=== PATIENT | female | born 1985 | race Caucasian/White ===

== ENCOUNTER 2016-12-22 11:54 | Inpatient (IN) | payer MEDICARE ==
--- NOTE | ~2016-12-22 | HP ---
History And Physical [address] [place]. [address] NAME: HOSEA STEPHENS : 81 STATUS : ADM IN [facility]#: [id number] AGE: 31 ADM/REG DATE : 12/22/16 MR#: [id number] REPORT SERV DATE: 12/22/16 DICTATED BY: VASU GUZMÁN DATE: 12/22/16 REPORT STATUS : Draft TRANSCRIBED BY: MODL DATE: 12/22/16 DATE OF ADMISSION: 12/22/2016 CHIEF COMPLAINT: Abdominal pain. HISTORY OF PRESENT ILLNESS: This is a 31-year-old lady with a history of acute intermittent porphyria as well as chronic pain, generalized anxiety disorder, endometriosis, GERD, presenting with abdominal pain. The patient is actually well known to our Hospitalist Service for her not so frequent but numerous admissions in the past for acute porphyria attacks. The patient presents yet again with a very similar episode. The patient started having a vague abdominal pain since about eight days ago. The patient reports that she has been under a lot of emotional stress from home. The patient did try sugar loading at home without any improvement of her abdominal pain. The patient thus came to the ER for further evaluation and care. In the ER, the patient was found to be afebrile. The patient's blood pressure was fine, but she was very tachycardic with heart rate in the 130s. The patient was otherwise hemodynamically stable. Initial lab evaluation was all very benign including benign LFTs. Urinalysis was also benign. Internal Medicine consultation was requested for admission of the patient for further evaluation and care. REVIEW OF SYSTEMS: The patient denies any fevers or chills. Also, a 14-point review of systems reviewed and negative other than mentioned above. MEDICATIONS: 1. Oxycodone 15 mg p.o. four times daily p.r.n. 2. Xanax 1 mg p.o. three times daily p.r.n. ALLERGIES: 1. ATIVAN. 2. MORPHINE. 3. PROPOFOL. PAST MEDICAL HISTORY: 1. 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 The patient was most recently hospitalized back in August which is about four months ago. The patient follows with [facility] as an outpatient and she does not have any physicians here locally that she follows with. 2. Chronic pain, narcotic dependence, on 15 mg of oxycodone four times daily p.r.n. as an outpatient. 3. Generalized anxiety disorder, on Xanax as an outpatient. 4. Endometriosis. 5. GERD. PAST SURGICAL HISTORY: History And Physical [address] [address] NAME: HOSEA STEPHENS : [birth year] STATUS : ADM IN PAT#: [id number] AGE: 31 ADM/REG DATE : 12/22/16 MR#: [id number] REPORT SERV DATE: 12/22/16 DICTATED BY: VASU GUZMÁN DATE: 12/22/16 REPORT STATUS : Draft TRANSCRIBED BY: ROSY DATE: 12/22/16 1. PEG tube in the past. 2. Left knee surgery. 3. Port-A-Cath placement. 4. Left ovarian cyst surgery. FAMILY HISTORY: 1. Hypertension. 2. COPD. SOCIAL HISTORY: The patient smokes about half a pack per day. The patient rarely consumes alcohol if ever. The patient does not use any illicit drugs. The patient is at home with her . PHYSICAL EXAMINATION: VITAL SIGNS: Temperature 98.2, blood pressure 164/87, pulse 138, respiratory rate is 16, and saturating 98% on room air. NEUROLOGIC: The patient is alert and oriented x3 with no focal neurologic deficits. GENERAL: The patient is awake, does not appear to be in acute distress, and she is cooperative. NECK: No JVD. No lymphadenopathy. Normal thyroid. CHEST: No midline sternotomy scar and no tenderness to palpation. LUNGS: Clear to auscultation bilaterally with normal respiratory effort on room air. CARDIOVASCULAR: Regular rate and rhythm with no murmurs, rubs, or gallops, and PMI is nondisplaced. ABDOMEN: Soft, nontender, with active bowel sounds and no organomegaly. EXTREMITIES: No edema. Normal distal pulses. No calf tenderness. SKIN: Clean, dry, warm, and intact. LABORATORY DATA: Sodium is 141, potassium 4.3, chloride 108, BUN 21, creatinine 0.75, glucose 123, calcium 8.4. White blood cell count is 7.3, hemoglobin 12.3, and platelets 182. LFTs are within normal limits. Urinalysis was benign. ASSESSMENT AND PLAN: This is a 31-year-old lady with a history of acute intermittent porphyria, presenting with another episode. 1. Acute intermittent porphyria. The patient has established disease. 2. Chronic pain at baseline, with narcotic dependence. 3. Generalized anxiety disorder. 4. Endometriosis. 5. Gastroesophageal reflux disease. 6. Smoking. PLAN: The plan is to admit the patient under [facility]. The patient will be given D5 IV fluids. The patient will also be treated with Panhematin 4 mg/kg once daily. Also other means of supportive care will be provided including IV analgesia and anxiety control. I will check urine for urinary porphobilinogen just to confirm the diagnosis. Otherwise, for the rest of stable past medical conditions, including generalized anxiety disorder, chronic pain, et al., I will continue home medications. For smoking cessation, counseling was History And Physical [address] [address] NAME: HOSEA STEPHENS : 83 STATUS : ADM IN [facility]#: [id number] AGE: 31 ADM/REG DATE : 12/22/16 MR#: [id number] REPORT SERV DATE: 12/22/16 DICTATED BY: VASU GUZMÁN DATE: 12/22/16 REPORT STATUS : Draft TRANSCRIBED BY: MODL DATE: 12/22/16 provided. Standard DVT prophylaxis. The patient is full code at this time. [facility]/ROSY Vasu Guzmán MD / [id number] CC: Vasu Guzmán MD UNKNOWN
--- NOTE | ~2016-12-22 | DS ---
Discharge Summary [facility] [address] [place]. [address] NAME: HOSEA STEPHENS : [birth year] STATUS : DIS IN PAT#: [id number] AGE: 31 ADM/REG DATE : 12/22/16 MR#: [id number] REPORT SERV DATE: 12/27/16 DICTATED BY: VASU GUZMÁN DATE: 12/26/16 REPORT STATUS : Draft TRANSCRIBED BY: MODL DATE: 12/26/16 ADMISSION DATE: 12/22/2016 DISCHARGE DATE: 12/26/2016 DISCHARGE DIAGNOSES: 1. Acute intermittent porphyria. 2. Chronic pain. 3. Generalized anxiety disorder. 4. Smoking. 5. Gastroesophageal reflux disease. CONSULTS: None. PROCEDURES: None. HOSPITAL COURSE: This is a 31-year-old lady, who is well-known to our Hospitalist Service for her numerous hospitalizations for the acute intermittent porphyria, who was admitted yet again with acute intermittent porphyria. For details, please refer to my own H and P. In summary, the patient was admitted and was started on Panhematin as well as IV glucose loading. The patient was also given supportive care with pain control. The patient received three doses of Panhematin 4 mg/kg IV daily. There was a question of possible from the past and I did go ahead and check urinary porphobilinogen, which was positive indeed suggesting that the patient does have a true acute intermittent porphyria. After a few days of supportive care along with Panhematin, the patient has clinically improved. During this hospital stay, the patient had an episode of fever that was not attributable to any identifiable source of infection. The patient was simply monitored, and the patient did not have any further recurrent fevers. The patient's lab work was also very benign. The patient is now being discharged home to be followed as an outpatient. Of note, despite the patient having been diagnosed with acute intermittent porphyria, the patient does not yet have an established primary care in the area. The patient was strongly encouraged to find a local primary care physician in addition to following up with [facility] that she apparently is already doing. Also, patient was complaining of uncontrolled anxiety here in the hospital, and the patient was given a referral to Psychiatry so she can follow up as an outpatient. DISPOSITION: Home. DISCHARGE MEDICATIONS: No changes. FOLLOWUP: 1. Follow up with [facility] as already scheduled. 2. Please establish care with a primary care physician and psychiatrist as soon as possible. A total of 25 minutes was spent in coordinating this patient's discharge today. Discharge Summary [address] [address] NAME: HOSEA STEPHENS : [birth year] STATUS : DIS IN PAT#: [id number] AGE: 31 ADM/REG DATE : 12/22/16 MR#: [id number] REPORT SERV DATE: 12/27/16 DICTATED BY: VASU GUZMÁN DATE: 12/26/16 REPORT STATUS : Draft TRANSCRIBED BY: ROSY DATE: 12/26/16 Samina/ROSY Vasu Guzmán MD / [id number] CC: Vasu Guzmán MD
[~2016-12-22 11:54] MED LIST: ALEVE220 MG PO; BACDS PO; CHANTIX0.5 PO; DSS PO; ENDOCET1 TA3 PO; EXCEDRIN EXTRA1 EACH PO; LEVAQUIN750 MG PO; MIRALAXPKT PO; NATURA2 OPH; NEUR300 PO; OXYCOD PO; OXYCON10 PO; PCET PO; ROXICODONE15 MG PO; TEARS NATURA OPH; X5 PO; XANAX1 MG PO; ZOFRAN8 PO; ZOL50 PO; [UNRECOGNIZED DRUG - OTHER] IV
[2016-12-22 12:36] LABS: ASCORBIC ACID (UR NOT ORDER) NEG (NEG); BILIRUBIN, URINE SMALL (NEG); ER URINALYSIS TAT 0 Hrs 09 Mins; KETONE, URINE NEGATIVE (NEG); LEUKOCYTE ESTERASE(NOT OR TRACE (NEG); NITRITE (URINE) NEG (NEG); WBC (NOT ORDERED) (RFLEX) 2 (0-5)
[2016-12-22 13:09] LABS: BASOPHILS 0.4 %; BASOPHILS ABSOLUTE 0.03 10/3/uL (0.0-0.16); EOSINOPHILS 0.4 %; EOSINOPHILS ABSOLUTE 0.03 10/3/uL (0.0-0.53); ER CBC TAT 0 Hrs 05 Mins; HEMOGLOBIN 12.3 g/dL (12.0-16.0); IMMATURE GRANULOCYTES 0.1 %; IMMATURE GRANULOCYTES ABSOLUTE 0.01 10/3/uL (0.0-0.11); LYMPHOCYTES 16.6 %; LYMPHOCYTES ABSOLUTE 1.21 10/3/uL (0.67-4.30); MEAN CORPUS HGB CONC 34.7 g/dL (32.0-36.0); MEAN CORPUSCULAR HEMOGLOB 31.7 pg (26.0-34.0); MEAN CORPUSCULAR VOLUME 91.2 fL (80-100); MEAN PLATELET VOLUME 10.7 fL (9.2-13.0); MONOCYTES 4.2 %; MONOCYTES ABSOLUTE 0.31 10/3/uL (0.21-1.20); NEUTROPHILS 78.3 %; NEUTROPHILS ABSOLUTE 5.72 10/3/uL (2.02-8.40); RBC DISTRIBUTION WIDTH 13.3 % (12.0-16.0); RED CELL COUNT 3.88 10/6/uL (4.0-5.6); WHITE BLOOD CELLS 7.3 10/3/uL (4.5-10.5)
[2016-12-22 13:10] LABS: HEMATOCRIT 35.4 % (36.0-48.0); PLATELET COUNT 182 10/3/uL (150-400)
[2016-12-22 13:11] LABS: MANUAL DIFF NO %
[2016-12-22 13:28] LABS: ALBUMIN 2.8 G/DL (3.5-5.0); ALKALINE PHOSPHATASE 63 U/L (45-117); BUN (BLOOD UREA NITROGEN) 21 MG/DL (6-23); CALCIUM, SERUM 8.4 MG/DL (8.5-10.4); CHLORIDE, SERUM 108 MMOL/L (96-112); CO2 (CARBON DIOXIDE) 26 MMOL/L (24-34); CREATININE 0.75 MG/DL (0.55-1.02); GFR AFRICAN AMERICAN 121 ML/MIN (>=60); GFR NON AFRICAN AMERICAN 105 ML/MIN (>=60); GLOBULIN 2.9 G/DL (2.5-4.1); GLUCOSE, SERUM 123 MG/DL (60-99); HCG SERUM QUANTITATIVE <1.0 IU/L (0-6); POTASSIUM, SERUM 4.3 MMOL/L (3.5-5.3); SGOT(AST) 28 U/L (5-40); SGPT(ALT) 34 U/L (5-65); SODIUM, SERUM 141 MMOL/L (135-148); TOTAL BILIRUBIN 1.2 MG/DL (0-1.2); TOTAL PROTEIN 5.7 G/DL (6.0-8.5)
[2016-12-25 13:06] LABS: BASOPHILS 0.4 %; BASOPHILS ABSOLUTE 0.02 10/3/uL (0.0-0.16); EOSINOPHILS 1.2 %; EOSINOPHILS ABSOLUTE 0.06 10/3/uL (0.0-0.53); HEMATOCRIT 34.1 % (36.0-48.0); HEMOGLOBIN 11.9 g/dL (12.0-16.0); IMMATURE GRANULOCYTES 0.4 %; IMMATURE GRANULOCYTES ABSOLUTE 0.02 10/3/uL (0.0-0.11); LYMPHOCYTES 16.8 %; LYMPHOCYTES ABSOLUTE 0.84 10/3/uL (0.67-4.30); MEAN CORPUS HGB CONC 34.9 g/dL (32.0-36.0); MEAN CORPUSCULAR HEMOGLOB 31.6 pg (26.0-34.0); MEAN CORPUSCULAR VOLUME 90.7 fL (80-100); MONOCYTES 11.6 %; MONOCYTES ABSOLUTE 0.58 10/3/uL (0.21-1.20); NEUTROPHILS 69.6 %; NEUTROPHILS ABSOLUTE 3.49 10/3/uL (2.02-8.40); PLATELET COUNT 139 10/3/uL (150-400); RBC DISTRIBUTION WIDTH 13.3 % (12.0-16.0); RED CELL COUNT 3.76 10/6/uL (4.0-5.6)
[2016-12-25 13:07] LABS: MANUAL DIFF NO %
[2016-12-25 13:22] LABS: CHLORIDE, SERUM 110 MMOL/L (96-112); CO2 (CARBON DIOXIDE) 25 MMOL/L (24-34); CREATININE 0.53 MG/DL (0.55-1.02); GFR AFRICAN AMERICAN 145 ML/MIN (>=60); GFR NON AFRICAN AMERICAN 125 ML/MIN (>=60); SODIUM, SERUM 144 MMOL/L (135-148)
[2016-12-25 13:24] LABS: BUN (BLOOD UREA NITROGEN) 6 MG/DL (6-23); CALCIUM, SERUM 6.1 MG/DL (8.5-10.4); GLUCOSE, SERUM 95 MG/DL (60-99); POTASSIUM, SERUM 3.3 MMOL/L (3.5-5.3)
[2016-12-26 07:31] LABS: BUN (BLOOD UREA NITROGEN) 8 MG/DL (6-23); CHLORIDE, SERUM 102 MMOL/L (96-112); CO2 (CARBON DIOXIDE) 25 MMOL/L (24-34); CREATININE 0.76 MG/DL (0.55-1.02); GFR AFRICAN AMERICAN 119 ML/MIN (>=60); GFR NON AFRICAN AMERICAN 103 ML/MIN (>=60); GLUCOSE, SERUM 86 MG/DL (60-99); SODIUM, SERUM 139 MMOL/L (135-148)
[2016-12-26 07:33] LABS: CALCIUM, SERUM 7.9 MG/DL (8.5-10.4)
[2016-12-31 18:39] LABS: PORPHOBILINOGEN - MG/L 24.9 mg/L (())
[2017-04-27] MEDS ORDERED: MIRALAX POWDER1 PKT PO (11:51)
== END 2016-12-26 14:10 | disposition home or self-care (01) | DRG 642 ==
LOC: ER 11:54 → 5SO 14:42
PROVIDERS: Emergency Medicine; Internal Medicine
DX: E80.21 Acute intermittent (hepatic) porphyria (principal); F11.20 Opioid dependence, uncomplicated; F41.9 Anxiety disorder, unspecified; K21.9 Gastro-esophageal reflux disease without esophagitis; Z88.5 Allergy status to narcotic agent; Z88.8 Allergy status to other drugs, medicaments and biological substances; G89.29 Other chronic pain; F17.210 Nicotine dependence, cigarettes, uncomplicated
CPT/HCPCS: 80048; 80053; 81001; 82570; 82962; 83690; 84110; 84120; 84702; 85025; 96374; 99284; A9270-GY; J1170; J1640; J2405; J2550

== ENCOUNTER 2017-02-14 13:15 | Inpatient (IN) | payer MEDICARE ==
--- NOTE | ~2017-02-14 | DS ---
Discharge Summary [address] [place]. [address] NAME: HOSEA STEPHENS : [birth year] STATUS : DIS IN PAT#: [id number] AGE: 31 ADM/REG DATE : 02/14/17 MR#: [id number] REPORT SERV DATE: 02/18/17 DICTATED BY: RIGO VELÁSQUEZ DATE: 02/17/17 REPORT STATUS : Draft TRANSCRIBED BY: ROSY DATE: 02/17/17 ADMISSION DATE: 02/14/2017 DISCHARGE DATE: 02/17/2017 DISCHARGE DIAGNOSES: 1. Acute intermittent porphyria. 2. Chronic pain syndrome. 3. Generalized anxiety disorder. 4. History of endometriosis. 5. History of gastroesophageal reflux disease. 6. History of tobacco abuse. 7. Chronic constipation. 8. Intractable nausea and vomiting. DISCHARGE CONDITION: Stable. CONSULTATION: None. INVASIVE PROCEDURE: None. HISTORY OF PRESENT ILLNESS: For detailed HPI please make reference to Dr. Ainsley Cisneros's dictation on 02/14/2017. In brief, this is a 31-year-old female, with history of intermittent porphyria, who presented to the hospital with complaints of worsening abdominal pain, intractable nausea, and vomiting, which she reported was in keeping with known acute porphyria flare. Vitals in the ER: Blood pressure 140/110, heart rate 119, respiratory rate 20, oxygen saturating 95% on room air. Physical exam was positive for diffuse abdominal tenderness with normoactive bowel sounds. No rebound, tenderness, or guarding. LABORATORY DATA: WBC 10.4, hemoglobin 13.6, hematocrit 38.4, platelets 152. Sodium 143, potassium 3.6, creatinine 0.61. Troponin less than 0.02. EKG shows normal sinus rhythm. An assessment of acute intermittent porphyria flare for was made in the ER, the patient was admitted to the Hospitalist Service. HOSPITAL COURSE: 1. Acute intermittent porphyria flare, the patient was started on IV hemin. The patient's abdominal pain subsequently improved. Nausea and vomiting completely resolved with symptomatic treatment with Zofran. The patient received a total of three doses of hemin with appropriate response. The patient was subsequently discharged in stable condition to follow up with primary care physician and Gastroenterology as an outpatient. 2. Chronic constipation likely related to chronic opioid use. The patient was advised to abstain from chronic opioid use. The patient was prescribed laxative during the course of this admission. Other possibility of chronic constipation likely related to also porphyria. The patient was advised to continue follow up with her primary hospital insurance clerk as an outpatient. Discharge Summary [address] [address] NAME: HOSEA STEPHENS : [birth year] STATUS : DIS IN PAT#: [id number] AGE: 31 ADM/REG DATE : 02/14/17 MR#: [id number] REPORT SERV DATE: 02/18/17 DICTATED BY: RIGO VELÁSQUEZ DATE: 02/17/17 REPORT STATUS : Draft TRANSCRIBED BY: ROSY DATE: 02/17/17 DISCHARGE CONDITION: Stable. DISCHARGE DISPOSITION: Home. Less than 30 minutes was used to prepare this patient's discharge summary, reconcile medications, and advise the patient on discharge plans and followup. DICTATED BY: MD GLORIA ChavezO/ROSY Rigo Velásquez MD / [id number] CC: Rigo Velásquez MD
--- NOTE | ~2017-02-14 | HP ---
History And Physical [address] [facility] [place]. [address] NAME: HOSEA STEPHENS : [birth year] STATUS : ADM IN [facility]#: [id number] AGE: 31 ADM/REG DATE : 02/14/17 MR#: [id number] REPORT SERV DATE: 02/15/17 DICTATED BY: JOSE LUIS CASEY DATE: 02/14/17 REPORT STATUS : Draft TRANSCRIBED BY: MODVin DATE: 02/14/17 DATE OF ADMISSION: 02/14/2017 HISTORY OF PRESENT ILLNESS: This is a 31-year-old female, who has frequent admission at our hospitalist service. This patient has acute intermittent porphyria as well as chronic pain syndrome. She was recently discharged from the hospital last month on 12/26/2016. She presented to emergency room today with complaints of abdominal pain saying that, she had a flare up of porphyria. She was complaining of lower abdominal pain. She said that this started eight days ago but she was waiting to see if this is related to her menstrual period or this is real porphyria so she is complaining of abdominal pain. She says that it began with mild abdominal pain then progressed. She said that she was nauseous and in the same time, she told me that she needs high carbohydrate diet. She said that she tried to stay on high carbohydrate diet which helps her porphyria. She denies any fever. No cough, no chest pain. No shortness of breath. She looks very comfortable. All 14-point review of systems done are negative except what is stated in the history of present illness. PAST MEDICAL HISTORY: Known for acute intermittent porphyria, endometriosis, anxiety, chronic pain, gastroesophageal reflux disease, chronic pain and chronic narcotic dependence on oxycodone and Xanax, generalized anxiety. PAST SURGICAL HISTORY: Includes history of PEG tube placement in the past, left knee surgery, history of Port-A-Cath placement, history of left ovarian cyst surgery, history of tracheostomy when she was at the [facility] in the past. FAMILY HISTORY: Mother has hypertension. Father has COPD and colon cancer. SOCIAL HISTORY: The patient smokes about half pack per day for approximately 15 years. She denies any excessive use of alcohol. The patient denies any recreational drugs. She is at home. She has children and . HOME MEDICATIONS: Include Xanax 1 mg every 6-8 hours p.r.n. for anxiety, Zofran 8 mg every four hours p.r.n. for nausea, oxycodone 15 mg every 6-8 hours p.r.n. for pain. On further questioning, I asked the patient if she has a primary care physician, but she said that she does not have a primary care physician. Then the question was who prescribes her pain medications narcotics which she said that it is Dr. Castellanos in [place], [place] and she says for her porphyria she says Dr. Roberson at [facility]. REVIEW OF SYSTEMS: A 14-point review of systems done is negative except what is stated in the history of present illness. PHYSICAL EXAMINATION: GENERAL: A well-nourished, well-developed female, not in acute distress. Resting quietly. VITAL SIGNS: Blood pressure 140/100 initially then came down to 130/70, temperature 98.5, heart rate initially was 119 and then improved to 88, respiratory rate 20, oxygen saturation History And Physical [address] [address] NAME: HOSEA STEPHENS : [birth year] STATUS : ADM IN [facility]#: [id number] AGE: 31 ADM/REG DATE : 02/14/17 MR#: [id number] REPORT SERV DATE: 02/15/17 DICTATED BY: JOSE LUIS CASEY DATE: 02/14/17 REPORT STATUS : Draft TRANSCRIBED BY: ROSY DATE: 02/14/17 95 on room air. HEENT: Head atraumatic, normocephalic. Conjunctivae clear. Pupils are equal and reactive to light and accommodation. Extraocular muscles are intact. NECK: Supple. Trachea is midline. No supraclavicular or cervical lymphadenopathy. LUNGS: Clear to auscultation bilaterally. Normal respiratory effort. CARDIOVASCULAR SYSTEM: Regular rate and rhythm. Point of maximal impulse not displaced. ABDOMEN: Abdomen is soft. Positive normoactive bowel sounds. There is mild tenderness on lower abdominal palpation. There is no guarding, no rebound especially when patient is distracted by conversation, I do not feel any discomfort on abdominal palpation. EXTREMITIES: No clubbing, cyanosis. No edema. SKIN: Normal color and turgor. LABORATORY RESULTS: White count 10.4, hemoglobin 13.6, hematocrit 38.4, platelet count 152, PTT 37.9, PT 14.9, INR 1.2. Her urine urobilinogen was 2, no evidence of urinary tract infection. Sodium 143, potassium 3.6, chloride 110, carbon dioxide 30, BUN 7, creatinine 0.61, blood sugar 83, magnesium 1.7. Troponin less than 0.02. ALT 50, AST 32. Urine test is negative. EKG with normal sinus rhythm with a rate of 88, possible left atrial enlargement, ASSESSMENT AND PLAN: This is a 31-year-old female with past medical history of acute intermittent porphyria, history of drug dependency, history of anxiety who presented with: 1. Acute porphyria flare. 2. Chronic pain at baseline with narcotic dependence. 3. Generalized anxiety disorder. 4. History of endometriosis. 5. Gastroesophageal reflux disease. 6. Smoking. For her acute intermittent porphyria, we will start on high carbohydrate diet as well as we will start her on D5 infusion with normal saline, and we will also give her Panhematin infusion per pharmacy dosing for three days. Regarding pain control, the patient said that she cannot take morphine, she can take only Dilaudid, and she said that 1 mg is not enough for her, 1 mg was given in the emergency room. She wanted 2 mg. I told the patient that Dilaudid can cause some sedation, and I told her that we will give her from 1-2 mg as needed for pain and to be held for sedation as well as she wanted to continue her home pain medications. She said that she needs her Xanax and she cannot tolerate Ativan, and we will continue her Xanax to be sure that she will not have any withdrawal. We will put her also on DVT prophylaxis, and my partner will see her starting tomorrow morning. MG/MODL Jose Luis Casey M.D. History And Physical [address] [facility] [address] NAME: ANGELOHOSEAKENNETH HODGES : 81 STATUS : ADM IN PAT#: [id number] AGE: 31 ADM/REG DATE : 02/14/17 MR#: [id number] REPORT SERV DATE: 02/15/17 DICTATED BY: JOSE LUIS CASEY DATE: 02/14/17 REPORT STATUS : Draft TRANSCRIBED BY: ROSY DATE: 02/14/17 / [id number] CC: Martin Cobos M.D.
[2017-02-14 13:59] LABS: ASCORBIC ACID (UR NOT ORDER) NEG (NEG); BILIRUBIN, URINE NEGATIVE (NEG); ER URINALYSIS TAT 0 Hrs 23 Mins; KETONE, URINE NEGATIVE (NEG); LEUKOCYTE ESTERASE(NOT OR NEG (NEG); NITRITE (URINE) NEG (NEG); WBC (NOT ORDERED) (RFLEX) 2 (0-5)
[2017-02-14] MEDS ORDERED: ROXICODONE15 MG PO (20:38)
[2017-02-14] MEDS ORDERED: XANAX1 MG PO (20:38)
[2017-02-14] MEDS ORDERED: ZOFRAN8 PO (20:39)
[2017-02-14 21:06] LABS: BASOPHILS 0.2 %; BASOPHILS ABSOLUTE 0.02 10/3/uL (0.0-0.16); EOSINOPHILS 4.2 %; EOSINOPHILS ABSOLUTE 0.44 10/3/uL (0.0-0.53); HEMOGLOBIN 13.6 g/dL (12.0-16.0); IMMATURE GRANULOCYTES 0.2 %; IMMATURE GRANULOCYTES ABSOLUTE 0.02 10/3/uL (0.0-0.11); LYMPHOCYTES 29.5 %; LYMPHOCYTES ABSOLUTE 3.08 10/3/uL (0.67-4.30); MEAN CORPUS HGB CONC 35.4 g/dL (32.0-36.0); MEAN CORPUSCULAR HEMOGLOB 31.6 pg (26.0-34.0); MEAN CORPUSCULAR VOLUME 89.1 fL (80-100); MONOCYTES 4.8 %; NEUTROPHILS 61.1 %; NEUTROPHILS ABSOLUTE 6.37 10/3/uL (2.02-8.40); PLATELET COUNT 152 10/3/uL (150-400); RBC DISTRIBUTION WIDTH 13.7 % (12.0-16.0); RED CELL COUNT 4.31 10/6/uL (4.0-5.6)
[2017-02-14 21:10] LABS: HEMATOCRIT 38.4 % (36.0-48.0); MANUAL DIFF NO %; WHITE BLOOD CELLS 10.4 10/3/uL (4.5-10.5)
[2017-02-14 21:14] LABS: INTERNATIONAL NORMAL RATI 1.2 UNITS (-); PROTIME (NOT ORD) 14.9 SEC (12.0-14.5)
[2017-02-14 21:17] LABS: ALBUMIN 3.7 G/DL (3.5-5.0); ALKALINE PHOSPHATASE 65 U/L (45-117); BUN (BLOOD UREA NITROGEN) 7 MG/DL (6-23); CALCIUM, SERUM 8.4 MG/DL (8.5-10.4); CHEST PAIN PROFILE TAT 0 Hrs 24 Mins; CHLORIDE, SERUM 110 MMOL/L (96-112); CO2 (CARBON DIOXIDE) 30 MMOL/L (24-34); CREATININE 0.61 MG/DL (0.55-1.02); DIRECT BILIRUBIN 0.2 MG/DL (0.0-0.4); GFR AFRICAN AMERICAN 138 ML/MIN (>=60); GFR NON AFRICAN AMERICAN 119 ML/MIN (>=60); GLUCOSE, SERUM 83 MG/DL (60-99); INDIRECT BILIRUBIN(NOT ORDER) 0.6 MG/DL (0.1-0.9); POTASSIUM, SERUM 3.6 MMOL/L (3.5-5.3); SGOT(AST) 32 U/L (5-40); SGPT(ALT) 50 U/L (5-65); SODIUM, SERUM 143 MMOL/L (135-148); TOTAL BILIRUBIN 0.8 MG/DL (0-1.2); TOTAL PROTEIN 6.5 G/DL (6.0-8.5); TROPONIN I <0.02 NG/ML (<0.05)
[2017-02-14 21:24] LABS: PARTIAL THROMBO TIME 37.9 SEC (22.5-37.2)
[2017-02-15 12:40] LABS: BASOPHILS 0.3 %; BASOPHILS ABSOLUTE 0.02 10/3/uL (0.0-0.16); EOSINOPHILS 9.7 %; EOSINOPHILS ABSOLUTE 0.68 10/3/uL (0.0-0.53); HEMOGLOBIN 12.6 g/dL (12.0-16.0); IMMATURE GRANULOCYTES 0.1 %; IMMATURE GRANULOCYTES ABSOLUTE 0.01 10/3/uL (0.0-0.11); LYMPHOCYTES 43.7 %; LYMPHOCYTES ABSOLUTE 3.06 10/3/uL (0.67-4.30); MEAN CORPUSCULAR HEMOGLOB 32.6 pg (26.0-34.0); MEAN CORPUSCULAR VOLUME 90.7 fL (80-100); MEAN PLATELET VOLUME 12.5 fL (9.2-13.0); MONOCYTES ABSOLUTE 0.56 10/3/uL (0.21-1.20); NEUTROPHILS 38.2 %; NEUTROPHILS ABSOLUTE 2.67 10/3/uL (2.02-8.40); PLATELET COUNT 117 10/3/uL (150-400); RED CELL COUNT 3.86 10/6/uL (4.0-5.6)
[2017-02-15 12:41] LABS: MANUAL DIFF NO %
[2017-02-15 13:00] LABS: BUN (BLOOD UREA NITROGEN) 9 MG/DL (6-23); CALCIUM, SERUM 7.9 MG/DL (8.5-10.4); CHLORIDE, SERUM 109 MMOL/L (96-112); CO2 (CARBON DIOXIDE) 31 MMOL/L (24-34); CREATININE 0.71 MG/DL (0.55-1.02); GFR AFRICAN AMERICAN 130 ML/MIN (>=60); GFR NON AFRICAN AMERICAN 112 ML/MIN (>=60); GLUCOSE, SERUM 97 MG/DL (60-99); SODIUM, SERUM 144 MMOL/L (135-148)
[2017-02-15 13:01] LABS: POTASSIUM, SERUM 3.9 MMOL/L (3.5-5.3)
[2017-02-16 10:38] LABS: BASOPHILS 0.2 %; BASOPHILS ABSOLUTE 0.02 10/3/uL (0.0-0.16); EOSINOPHILS 10.9 %; EOSINOPHILS ABSOLUTE 0.92 10/3/uL (0.0-0.53); HEMATOCRIT 34.6 % (36.0-48.0); HEMOGLOBIN 12.1 g/dL (12.0-16.0); IMMATURE GRANULOCYTES 0.2 %; IMMATURE GRANULOCYTES ABSOLUTE 0.02 10/3/uL (0.0-0.11); LYMPHOCYTES 23.2 %; LYMPHOCYTES ABSOLUTE 1.96 10/3/uL (0.67-4.30); MEAN CORPUSCULAR HEMOGLOB 32.1 pg (26.0-34.0); MEAN CORPUSCULAR VOLUME 91.8 fL (80-100); MEAN PLATELET VOLUME 12.1 fL (9.2-13.0); MONOCYTES 6.6 %; MONOCYTES ABSOLUTE 0.56 10/3/uL (0.21-1.20); NEUTROPHILS 58.9 %; NEUTROPHILS ABSOLUTE 4.98 10/3/uL (2.02-8.40); PLATELET COUNT 124 10/3/uL (150-400); RBC DISTRIBUTION WIDTH 13.9 % (12.0-16.0); RED CELL COUNT 3.77 10/6/uL (4.0-5.6); WHITE BLOOD CELLS 8.5 10/3/uL (4.5-10.5)
[2017-02-16 10:39] LABS: MANUAL DIFF NO %
[2017-02-16 10:50] LABS: BUN (BLOOD UREA NITROGEN) 6 MG/DL (6-23); CALCIUM, SERUM 7.3 MG/DL (8.5-10.4); CHLORIDE, SERUM 111 MMOL/L (96-112); CO2 (CARBON DIOXIDE) 28 MMOL/L (24-34); CREATININE 0.78 MG/DL (0.55-1.02); GFR AFRICAN AMERICAN 116 ML/MIN (>=60); GFR NON AFRICAN AMERICAN 100 ML/MIN (>=60); PHOSPHORUS, SERUM 2.2 MG/DL (2.5-4.5); POTASSIUM, SERUM 3.4 MMOL/L (3.5-5.3); SODIUM, SERUM 145 MMOL/L (135-148)
[2017-02-16 10:51] LABS: GLUCOSE, SERUM 280 MG/DL (60-99)
[2017-02-17 04:50] LABS: BASOPHILS 0.2 %; BASOPHILS ABSOLUTE 0.02 10/3/uL (0.0-0.16); EOSINOPHILS 9.2 %; HEMOGLOBIN 13.1 g/dL (12.0-16.0); IMMATURE GRANULOCYTES 0.3 %; IMMATURE GRANULOCYTES ABSOLUTE 0.03 10/3/uL (0.0-0.11); LYMPHOCYTES 37.2 %; LYMPHOCYTES ABSOLUTE 4.06 10/3/uL (0.67-4.30); MANUAL DIFF NO %; MEAN CORPUS HGB CONC 34.5 g/dL (32.0-36.0); MEAN CORPUSCULAR HEMOGLOB 31.6 pg (26.0-34.0); MEAN CORPUSCULAR VOLUME 91.8 fL (80-100); MEAN PLATELET VOLUME 11.8 fL (9.2-13.0); MONOCYTES 8.5 %; MONOCYTES ABSOLUTE 0.93 10/3/uL (0.21-1.20); NEUTROPHILS 44.6 %; NEUTROPHILS ABSOLUTE 4.88 10/3/uL (2.02-8.40); PLATELET COUNT 102 10/3/uL (150-400); RBC DISTRIBUTION WIDTH 13.9 % (12.0-16.0); RED CELL COUNT 4.14 10/6/uL (4.0-5.6); WHITE BLOOD CELLS 10.9 10/3/uL (4.5-10.5)
[2017-02-17 05:09] LABS: BUN (BLOOD UREA NITROGEN) 5 MG/DL (6-23); CALCIUM, SERUM 7.7 MG/DL (8.5-10.4); CHLORIDE, SERUM 111 MMOL/L (96-112); CO2 (CARBON DIOXIDE) 29 MMOL/L (24-34); CREATININE 0.67 MG/DL (0.55-1.02); GFR AFRICAN AMERICAN 134 ML/MIN (>=60); GFR NON AFRICAN AMERICAN 115 ML/MIN (>=60); GLUCOSE, SERUM 70 MG/DL (60-99); PHOSPHORUS, SERUM 2.9 MG/DL (2.5-4.5); POTASSIUM, SERUM 4.5 MMOL/L (3.5-5.3); SODIUM, SERUM 143 MMOL/L (135-148)
[2017-02-17] MEDS ORDERED: DSS PO (16:49)
[2017-02-17] MEDS ORDERED: SENTAB PO (16:50)
[2017-02-17] MEDS ORDERED: MIRALAX POWDER1 PKT PO (16:50)
[2017-04-27] MEDS ORDERED: MIRALAX POWDER1 PKT PO (11:51)
== END 2017-02-17 17:52 | disposition home or self-care (01) | DRG 642 ==
LOC: ER 13:15 → 7NO 23:41
PROVIDERS: Hospitalist; Nurse Practitioner
DX: E80.21 Acute intermittent (hepatic) porphyria (principal); F11.20 Opioid dependence, uncomplicated; F41.1 Generalized anxiety disorder; G89.29 Other chronic pain; K21.9 Gastro-esophageal reflux disease without esophagitis; F17.210 Nicotine dependence, cigarettes, uncomplicated; Z79.891 Long term (current) use of opiate analgesic; Z82.49 Family history of ischemic heart disease and other diseases of the circulatory system
CPT/HCPCS: 74000; 80048; 80076; 81001; 83036; 83735; 84100; 84484; 84703; 85025; 85610; 85730; 93005; 96374; 99285; A9270-GY; J1170; J1640; J2405; J3475

== ENCOUNTER 2017-03-12 21:06 | Inpatient (IN) | payer MEDICARE ==
--- NOTE | ~2017-03-12 | HP ---
History And Physical [facility] [address] [facility] [place]. [address] NAME: HOSEA STEPHENS : [birth year] STATUS : ADM IN PAT#: [id number] AGE: 31 ADM/REG DATE : 03/12/17 MR#: [id number] REPORT SERV DATE: 03/13/17 DICTATED BY: ARIS VIVEROS DATE: 03/12/17 REPORT STATUS : Draft TRANSCRIBED BY: MODL DATE: 03/12/17 DATE OF ADMISSION: 03/12/2017 CHIEF COMPLAINT: Abdominal pain, nausea, and vomiting. HISTORY OF PRESENT ILLNESS: This is a 31-year-old female with a history of acute intermittent porphyria with numerous flareups and admissions to the hospital here, history of gastroesophageal reflux disease and anxiety disorder along with chronic pain, who presents to the emergency room at [facility], with the above-mentioned complaint. History is obtained from the patient and reviewing data available on the [facility] system. According to the patient, she started having her symptoms about five to seven days ago. She was having her menstrual period at that time and thought her symptoms were due to the period. She says she started having abdominal pain, which occurred like a band across her lower abdomen, along with nausea and vomiting. She also had some diarrhea with her menstrual cycle. In the days that followed, her symptoms continued to get worse along with severe pain all over as well. She realized she was having another flareup of her intermittent porphyria. She finally decided to come to the emergency room to be evaluated. In the emergency room, she continued to have the above symptoms. She says on her way here while her was driving her, she had a syncopal episode as well. Apparently, her had told her that as he was driving, he noticed she suddenly started flopping all around and jerking, and this lasted for 45 seconds. At the end of this, she came around slowly and did not have any recollection of what had happened. This was on her way over to the hospital to the emergency room. At the time of my evaluation, she denied any chest pain, palpitations, or orthopnea. She had no cough, hemoptysis, night sweats, or weight loss. She has had an episode of seizure as mentioned above. She denied any fevers or chills. Denied any hemoptysis, hematemesis, hematochezia, or hematuria. She did not have any dysuria. No other history of recent travel or exposures other than those mentioned above. PAST MEDICAL HISTORY: Significant for acute intermittent porphyria with numerous admissions to this hospital, chronic pain syndrome, history of seizure disorder, gastroesophageal reflux disease, and anxiety disorder. SOCIAL HISTORY: She does smoke, has about 20- to [id number] history of smoking and continues to do so. She also uses marijuana on a regular basis. She denies alcohol use or other intravenous drug use. She is currently disabled due to her porphyria. FAMILY HISTORY: Noncontributory. MEDICATIONS: At home were reviewed by me in the chart today and reordered by me. REVIEW OF SYSTEMS: History And Physical [address] [address] NAME: HOSEA STEPHENS : [birth year] STATUS : ADM IN [facility]#: [id number] AGE: 31 ADM/REG DATE : 03/12/17 MR#: [id number] REPORT SERV DATE: 03/13/17 DICTATED BY: ARIS VIVEROS DATE: 03/12/17 REPORT STATUS : Draft TRANSCRIBED BY: ROSY DATE: 03/12/17 As in history of present illness. All other systems were reviewed in detail and are quite unremarkable. PHYSICAL EXAMINATION: GENERAL: This is a pleasant 31-year-old, not in any acute distress. HEENT: Her head is atraumatic, normocephalic. She is alert, awake, and oriented to time, place, and person. Pupils are equal, reacting to light and accommodating. External ocular muscles are intact. Membranes are moist and pink. Sclerae are nonicteric. NECK: Supple with no jugular venous distention, lymphadenopathy, or thyromegaly. LUNGS: Clear to auscultation with no wheezes, rubs, or crackles. HEART: Heart sounds were regular with no murmurs, rubs, or gallops. ABDOMEN: Soft, nontender. Bowel sounds are present. EXTREMITIES: Showed no cyanosis, clubbing, or edema. NEUROLOGIC: Grossly intact. No focal sensory or motor deficits. Higher functions appeared intact. Gait was not examined. VITAL SIGNS: Her vital signs today showed a temperature of 98.4, pulse 80, respirations 16 a minute, blood pressure was 132/71, oxygen saturations were 99%, breathing room air. LABORATORY DATA: Reviewed on the [facility] system showed a normal CMP. Liver numbers were within normal limits. CBC was essentially within normal limits as well. Urinalysis was grossly unremarkable. No imaging was performed in the ER today. A 12-lead EKG done in the emergency room was reviewed and interpreted by me. There is normal sinus rhythm at a rate of 88 per minute without any acute ST elevations. IMPRESSION: 1. Abdominal pain. 2. Nausea and vomiting. 3. Acute intermittent porphyria with an acute flareup. 4. History of seizure disorder. 5. Gastroesophageal reflux disease. 6. Anxiety disorder. 7. Possible opiate dependence. PLAN: We will admit Ms. Stephens to the Hospitalist Service with telemetry for close monitoring. We will start her on D5 half-normal saline for fluids. We may use her port that she has. We will also start her on Panhematin intravenously on a daily dose for four days. We will check her ferritin level as well. We will start her on pain control with intravenous Dilaudid given as a BRACELET FORMER. We will also place her on unfractionated heparin for DVT prophylaxis while here. The patient has been negotiating for Dilaudid and is demanding doses that are super pharmacological. I have tried to reason with her and she insists on seeing me again and again in the ER for negotiation. We will also follow this with chemistry and CBC in the morning and proceed accordingly. I have discussed the above plans with the patient. Her questions were answered. See note above. Hospitalist Service will be following her during her stay here. History And Physical [address] [address] NAME: HOSEA STEPHENS : [birth year] STATUS : ADM IN PAT#: [id number] AGE: 31 ADM/REG DATE : 03/12/17 MR#: [id number] REPORT SERV DATE: 03/13/17 DICTATED BY: ARIS VIVEROS DATE: 03/12/17 REPORT STATUS : Draft TRANSCRIBED BY: ROSY DATE: 03/12/17 /ROSY Aris Viveros M.D. / [id number] CC: Vikash Bentley DO
--- NOTE | ~2017-03-12 | DS ---
Discharge Summary [facility] [address] [place]. [address] NAME: HOSEA STEPHENS : 81 STATUS : DIS IN PAT#: [id number] AGE: 31 ADM/REG DATE : 03/12/17 MR#: [id number] REPORT SERV DATE: 03/16/17 DICTATED BY: SATHISH BURLESON DATE: 03/16/17 REPORT STATUS : Draft TRANSCRIBED BY: MODL DATE: 03/16/17 ADMISSION DATE: 03/12/2017 DISCHARGE DATE: 03/16/2017 CONDITION ON DISCHARGE: Stable. DISPOSITION: Discharged to home. ADVICE ON DISCHARGE: To follow up with PCP within the next one week. Her primary care physician according to the patient is in [place] and his name is Dr. Elmer Jameson. Next, advise also is to stop smoking. I have also advised her to stop smoking marijuana. DIAGNOSES ON DISCHARGE: 1. Acute abdominal pain secondary to acute intermittent porphyria-resolved. 2. Chronic intermittent porphyria. 3. Chronic narcotic dependence and narcotic addiction. 4. Tobacco abuse. 5. History of drug abuse. BRIEF HOSPITAL COURSE: The patient is a 31-year-old female patient, who was admitted to the hospital with signs and symptoms as outlined in history and physical exam. Essentially, she was admitted with abdominal pain, nausea, vomiting, and with a flare-up of her porphyria. So, the diagnosis was actually acute intermittent porphyria. The patient also has a history of seizure disorder and takes "Xanax" for this. 1. GERD. 2. Anxiety disorder. 3. Narcotic addiction. The patient was admitted to the hospital, given IV fluids, symptomatic treatment, and after this the patient's symptoms resolved. On 03/16/2017, I took over her care from Dr. Vikash Bentley, and this morning the patient feels better. She has no nausea, vomiting. She has eaten all of her food and is ambulatory. Her abdominal pain also has pretty much resolved. Hence, the patient is being sent home, being advised to resume exactly her regular home medications, except that I have advised the patient to take her Roxicodone only when necessary for severe pain only. The patient insists that she get a prescription of this as she does not have an appointment with PCP for the next few weeks. However, I discussed with the patient about nature of addictive potential of this medicine and only have given her Roxicodone 15 mg p.o. once a day p.r.n. for severe abdominal pain only, #7 only. The patient also states that she has a pain specialist and her pain specialist is in the hospital and hence is not able to see her. I am not sure of the authenticity of any of this information, however I have advised her to follow up with her PCP within next one week and then decide to go on to a chronic pain specialist after that on an outpatient basis. For now, I have given her a prescription of Roxicodone as mentioned above. The most recent lab results I have on this lady is as follows. Her CBC is completely normal with WBC of 9.1, hemoglobin 12.7, hematocrit 36.5, platelet count is 105. Electrolyte Discharge Summary [address] [address] NAME: HOSEA STEPHENS : 81 STATUS : DIS IN PAT#: [id number] AGE: 31 ADM/REG DATE : 03/12/17 MR#: [id number] REPORT SERV DATE: 03/16/17 DICTATED BY: SATHISH BURLESON DATE: 03/16/17 REPORT STATUS : Draft TRANSCRIBED BY: ROSY DATE: 03/16/17 profile shows sodium 139, potassium 3.4 which was corrected, BUN 9, creatinine 0.7. Her urinalysis upon admission showed she had a completely normal UA with no evidence of any significant UTI. Her LFTs are also within normal. Hence, the patient is being discharged home in stable condition with advice to change her lifestyle as advised above. I have spent about 30 to 35 minutes in coordinating discharge care of this patient. DICTATED BY: Williams Duran/ROSY Sathish Burleson M.D. / [id number] CC: Sathish Burleson M.D.
[2017-03-12 18:37] LABS: BASOPHILS 0.2 %; BASOPHILS ABSOLUTE 0.02 10/3/uL (0.0-0.16); EOSINOPHILS 3.5 %; HEMATOCRIT 40.3 % (36.0-48.0); HEMOGLOBIN 13.5 g/dL (12.0-16.0); IMMATURE GRANULOCYTES 0.5 %; IMMATURE GRANULOCYTES ABSOLUTE 0.04 10/3/uL (0.0-0.11); LYMPHOCYTES 26.4 %; LYMPHOCYTES ABSOLUTE 2.28 10/3/uL (0.67-4.30); MEAN CORPUS HGB CONC 33.5 g/dL (32.0-36.0); MEAN CORPUSCULAR HEMOGLOB 30.6 pg (26.0-34.0); MEAN CORPUSCULAR VOLUME 91.4 fL (80-100); MEAN PLATELET VOLUME 10.8 fL (9.2-13.0); MONOCYTES 6.3 %; MONOCYTES ABSOLUTE 0.54 10/3/uL (0.21-1.20); NEUTROPHILS 63.1 %; NEUTROPHILS ABSOLUTE 5.45 10/3/uL (2.02-8.40); PLATELET COUNT 230 10/3/uL (150-400); RBC DISTRIBUTION WIDTH 13.7 % (12.0-16.0); RED CELL COUNT 4.41 10/6/uL (4.0-5.6); WHITE BLOOD CELLS 8.6 10/3/uL (4.5-10.5)
[2017-03-12 18:53] LABS: A/G RATIO 1.1 (0.7-1.9); ALBUMIN 3.7 G/DL (3.5-5.0); ALKALINE PHOSPHATASE 78 U/L (45-117); BUN (BLOOD UREA NITROGEN) 12 MG/DL (6-23); CHLORIDE, SERUM 106 MMOL/L (96-112); CO2 (CARBON DIOXIDE) 27 MMOL/L (24-34); CREATININE 0.82 MG/DL (0.55-1.02); GFR AFRICAN AMERICAN 109 ML/MIN (>=60); GFR NON AFRICAN AMERICAN 94 ML/MIN (>=60); GLOBULIN 3.5 G/DL (2.5-4.1); GLUCOSE, SERUM 97 MG/DL (60-99); POTASSIUM, SERUM 3.8 MMOL/L (3.5-5.3); SGOT(AST) 21 U/L (5-40); SGPT(ALT) 23 U/L (5-65); SODIUM, SERUM 140 MMOL/L (135-148); TOTAL BILIRUBIN 0.5 MG/DL (0-1.2); TOTAL PROTEIN 7.2 G/DL (6.0-8.5)
[2017-03-12 18:55] LABS: ASCORBIC ACID (UR NOT ORDER) NEG (NEG); BILIRUBIN, URINE NEGATIVE (NEG); ER URINALYSIS TAT 0 Hrs 20 Mins; KETONE, URINE NEGATIVE (NEG); LEUKOCYTE ESTERASE(NOT OR NEG (NEG); NITRITE (URINE) NEG (NEG); WBC (NOT ORDERED) (RFLEX) 1 (0-5)
[2017-03-12 18:59] LABS: MANUAL DIFF NO %
[~2017-03-12 21:06] MED LIST changes: +MIRALAX POWDER1 PKT PO; +SENTAB PO
[2017-03-14 04:07] LABS: BASOPHILS 0.2 %; BASOPHILS ABSOLUTE 0.02 10/3/uL (0.0-0.16); EOSINOPHILS 5.3 %; EOSINOPHILS ABSOLUTE 0.48 10/3/uL (0.0-0.53); HEMATOCRIT 36.5 % (36.0-48.0); HEMOGLOBIN 12.7 g/dL (12.0-16.0); IMMATURE GRANULOCYTES 0.1 %; IMMATURE GRANULOCYTES ABSOLUTE 0.01 10/3/uL (0.0-0.11); LYMPHOCYTES 25.4 %; LYMPHOCYTES ABSOLUTE 2.31 10/3/uL (0.67-4.30); MEAN CORPUS HGB CONC 34.8 g/dL (32.0-36.0); MEAN CORPUSCULAR HEMOGLOB 31.6 pg (26.0-34.0); MEAN CORPUSCULAR VOLUME 90.8 fL (80-100); MEAN PLATELET VOLUME 11.1 fL (9.2-13.0); MONOCYTES 6.8 %; MONOCYTES ABSOLUTE 0.62 10/3/uL (0.21-1.20); NEUTROPHILS 62.2 %; NEUTROPHILS ABSOLUTE 5.67 10/3/uL (2.02-8.40); RBC DISTRIBUTION WIDTH 13.5 % (12.0-16.0); RED CELL COUNT 4.02 10/6/uL (4.0-5.6); WHITE BLOOD CELLS 9.1 10/3/uL (4.5-10.5)
[2017-03-14 04:18] LABS: MANUAL DIFF NO %; PLATELET COUNT 105 10/3/uL (150-400)
[2017-03-14 04:25] LABS: BUN (BLOOD UREA NITROGEN) 9 MG/DL (6-23); CHLORIDE, SERUM 106 MMOL/L (96-112); CO2 (CARBON DIOXIDE) 28 MMOL/L (24-34); CREATININE 0.78 MG/DL (0.55-1.02); GFR AFRICAN AMERICAN 116 ML/MIN (>=60); GFR NON AFRICAN AMERICAN 100 ML/MIN (>=60); GLUCOSE, SERUM 109 MG/DL (60-99); PHOSPHORUS, SERUM 2.5 MG/DL (2.5-4.5); SODIUM, SERUM 139 MMOL/L (135-148)
[2017-03-14 04:26] LABS: CALCIUM, SERUM 7.4 MG/DL (8.5-10.4); POTASSIUM, SERUM 3.4 MMOL/L (3.5-5.3)
[2017-04-27] MEDS ORDERED: MIRALAX POWDER1 PKT PO (11:51)
== END 2017-03-16 10:43 | disposition home or self-care (01) | DRG 642 ==
LOC: ER 21:06 → 5SO 21:18
PROVIDERS: Emergency Medicine; Internal Medicine
DX: E80.21 Acute intermittent (hepatic) porphyria (principal); F41.9 Anxiety disorder, unspecified; K21.9 Gastro-esophageal reflux disease without esophagitis; G89.4 Chronic pain syndrome; F17.210 Nicotine dependence, cigarettes, uncomplicated; F12.90 Cannabis use, unspecified, uncomplicated
CPT/HCPCS: 80048; 80053; 81001; 83735; 84100; 85025; 93005; 99285; A9270-GY; C9113; J1170; J1640; J2405